=== PATIENT | male | born 1965 | race Two or more races ===

== ENCOUNTER 2017-12-07 22:30 | Emergency (ER) | payer OTHER ==
[~2017-12-07] VITALS: Ht 180.3 cm; Wt 81.6 kg
[~2017-12-07 22:30] MED LIST: AVALIDE 150/12.1 TAB; CEFADROXIL500 MG PO; DUI500 PO; GLUCOTROL10 MG; HUMALOG100 UNIT/1; JANUMET 50-1,1 UDTAB; KETO10TA2 PO; LANTUS SOL100 UNIT/1; METFORMIN HCL1000 MG; MOTRIN800 MG PO; ORPH100T PO; ULTRACET PO
[2017-12-08] MEDS ORDERED: FLONASE ALLERG9.9 ML NASAL (03:45)
[2017-12-08] MEDS ORDERED: ZITHROMAX500 MG PO (03:45)
[2017-12-08] MEDS ORDERED: MUCINEX DM ER1 EAC1 PO (03:45)
[2017-12-08] MEDS ORDERED: BUDESONIDE0.5 MG/2 M IH (03:45)
[2017-12-08] MEDS ORDERED: IPRAT-ALBUT 0.5-3 ML IH (03:45)
[2017-12-08] MEDS ORDERED: PROMETH-CODEIN 65 ML PO (03:45)
== END 2017-12-08 04:07 ==
LOC: ER 22:30
DX: J06.9 Acute upper respiratory infection, unspecified (principal); J32.1 Chronic frontal sinusitis

== ENCOUNTER 2018-03-01 11:08 | Emergency (ER) | payer OTHER ==
[~2018-03-01] VITALS: Ht 180.3 cm; Wt 86.2 kg
[~2018-03-01 11:08] MED LIST changes: +BUDESONIDE0.5 MG/2 M IH; +FLONASE ALLERG9.9 ML NASAL; +IPRAT-ALBUT 0.5-3 ML IH; +MUCINEX DM ER1 EAC1 PO; +PROMETH-CODEIN 65 ML PO; +ZITHROMAX500 MG PO
== END 2018-03-01 13:25 | disposition home or self-care (01) ==
LOC: ER 11:08
DX: M79.18 Myalgia, other site (principal); M25.542 Pain in joints of left hand; M25.541 Pain in joints of right hand

== ENCOUNTER 2018-05-03 13:36 | Outpatient (CLI) | payer OTHER | END 2018-05-03 13:49 | disposition home or self-care (01) | LOC: RAD 501 13:36 | DX: N13.0 Hydronephrosis with ureteropelvic junction obstruction (principal); M15.0 Primary generalized (osteo)arthritis ==

== ENCOUNTER 2018-06-03 16:50 | Emergency (ER) | payer OTHER ==
[~2018-06-03] VITALS: Ht 172.7 cm; Wt 79.4 kg
[2018-06-15] MEDS ORDERED: ULTRACET PO (11:10)
[2018-06-15] MEDS ORDERED: DUI500 PO (11:10)
[2018-06-16] MEDS ORDERED: TRAM1TAB98 PO (09:43)
[2018-06-16] MEDS ORDERED: TAMSULOSIN HCL0.4 MG PO (09:43)
[2018-06-16] MEDS ORDERED: CEFADROXIL500 MG PO (09:45)
== END 2018-06-03 19:00 | disposition home or self-care (01) ==
LOC: ER 16:50
DX: S62.610A Displaced fracture of proximal phalanx of right index finger, initial encounter for closed fracture (principal); S62.612A Displaced fracture of proximal phalanx of right middle finger, initial encounter for closed fracture; W18.09XA Striking against other object with subsequent fall, initial encounter; Y93.89 Activity, other specified; Y92.89 Other specified places as the place of occurrence of the external cause; Y99.8 Other external cause status

== ENCOUNTER 2018-06-06 09:06 | Emergency (ER) | payer OTHER ==
[~2018-06-06] VITALS: Ht 180.3 cm; Wt 79.4 kg
[2018-06-06] MEDS ORDERED: IBUPROFEN600 MG (09:24)
[2018-06-06] MEDS ORDERED: AMOX-CLAV 875-1 EACH (09:24)
== END 2018-06-06 13:28 | disposition home or self-care (01) ==
LOC: ER 09:06
DX: N20.0 Calculus of kidney (principal)

== ENCOUNTER 2018-09-01 09:22 | Outpatient (CLI) | payer OTHER ==
[~2018-09-01 09:22] MED LIST changes: +AMOX-CLAV 875-1 EACH; +IBUPROFEN600 MG; +TAMSULOSIN HCL0.4 MG PO; +TRAM1TAB98 PO
== END 2018-09-01 09:25 | disposition home or self-care (01) ==
LOC: SONOGRAMA 09:22 → MAMO-SONO 10:45
DX: E03.8 Other specified hypothyroidism (principal); N20.0 Calculus of kidney; M25.511 Pain in right shoulder; E04.1 Nontoxic single thyroid nodule

== ENCOUNTER 2019-02-09 09:15 | Emergency (ER) | payer OTHER ==
[~2019-02-09] VITALS: Ht 180.3 cm; Wt 79.4 kg
[2019-02-09] MEDS ORDERED: TESSALON PERLE100 M1 PO (12:26)
[2019-02-09] MEDS ORDERED: PROMETH-CODEIN 65 ML PO (12:26)
== END 2019-02-09 12:40 | disposition home or self-care (01) ==
LOC: ER 09:15
DX: B34.9 Viral infection, unspecified (principal)

== ENCOUNTER → 2019-05-27 | Emergency (ER) | payer OTHER ==
[~2019-05-27] VITALS: Ht 180.3 cm; Wt 79.4 kg
[~2019-05-27] MED LIST changes: +TESSALON PERLE100 M1 PO
== END | disposition home or self-care (01) ==
LOC: ER 15:40
DX: Z48.02 Encounter for removal of sutures (principal)

== ENCOUNTER 2019-11-29 06:00 | Day surgery (SDC) | payer OTHER | END 2019-11-29 11:00 | disposition home or self-care (01) | LOC: AMB-ENDOS 06:00 | PROVIDERS: ATTEND Surgery | DX: D12.4 Benign neoplasm of descending colon (principal); D12.5 Benign neoplasm of sigmoid colon; K64.8 Other hemorrhoids; K62.3 Rectal prolapse ==

== ENCOUNTER 2020-12-10 08:42 | Emergency (ER) | payer OTHER ==
[~2020-12-10] VITALS: Ht 180.3 cm; Wt 83.0 kg
== END 2020-12-10 17:05 | disposition home or self-care (01) ==
LOC: ER 08:42
DX: I87.2 Venous insufficiency (chronic) (peripheral) (principal); M79.604 Pain in right leg; M62.838 Other muscle spasm

== ENCOUNTER 2021-10-29 22:55 | Emergency (ER) | payer OTHER ==
[~2021-10-29] VITALS: Ht 180.3 cm; Wt 84.4 kg
== END 2021-10-30 16:32 | disposition home or self-care (01) ==
LOC: ER 22:55
DX: K52.9 Noninfective gastroenteritis and colitis, unspecified (principal); Z90.5 Acquired absence of kidney; E86.0 Dehydration; E11.21 Type 2 diabetes mellitus with diabetic nephropathy; Z79.4 Long term (current) use of insulin; I12.9 Hypertensive chronic kidney disease with stage 1 through stage 4 chronic kidney disease, or unspecified chronic kidney disease; E11.22 Type 2 diabetes mellitus with diabetic chronic kidney disease; N18.30 Chronic kidney disease, stage 3 unspecified; E11.65 Type 2 diabetes mellitus with hyperglycemia

== ENCOUNTER 2022-03-25 22:45 | Emergency (ER) | payer OTHER ==
[~2022-03-25] VITALS: Ht 180.3 cm; Wt 82.1 kg
[2022-03-26] MEDS ORDERED: TRIAMCINOLONE A15 G3 TOP (10:05)
== END 2022-03-26 10:54 ==
LOC: ER 22:45
DX: L20.9 Atopic dermatitis, unspecified (principal); I10 Essential (primary) hypertension; E11.9 Type 2 diabetes mellitus without complications; Z79.4 Long term (current) use of insulin

== ENCOUNTER 2022-06-13 09:29 | Outpatient (CLI) | payer OTHER ==
[~2022-06-13 09:29] MED LIST changes: +TRIAMCINOLONE A15 G3 TOP
== END 2022-06-13 09:31 | disposition home or self-care (01) ==
LOC: LAB 09:29
PROVIDERS: ATTEND Internal Medicine
DX: D64.9 Anemia, unspecified (principal); E11.9 Type 2 diabetes mellitus without complications; E78.00 Pure hypercholesterolemia, unspecified; N39.0 Urinary tract infection, site not specified; R19.5 Other fecal abnormalities; Z12.11 Encounter for screening for malignant neoplasm of colon; E55.9 Vitamin D deficiency, unspecified; N40.0 Benign prostatic hyperplasia without lower urinary tract symptoms

== ENCOUNTER 2022-07-29 17:22 | Emergency (ER) | payer OTHER ==
[~2022-07-29] VITALS: Ht 180.3 cm; Wt 63.5 kg
== END 2022-07-29 22:38 | disposition home or self-care (01) ==
LOC: ER 17:22
DX: M54.2 Cervicalgia (principal); Z96.698 Presence of other orthopedic joint implants; Z85.9 Personal history of malignant neoplasm, unspecified

== ENCOUNTER 2022-09-25 21:31 | Emergency (ER) | payer OTHER ==
[~2022-09-25] VITALS: Ht 167.6 cm; Wt 74.8 kg
== END 2022-09-26 00:10 | disposition home or self-care (01) ==
LOC: ER 21:31
DX: R07.9 Chest pain, unspecified (principal); I10 Essential (primary) hypertension; E11.9 Type 2 diabetes mellitus without complications; Z79.4 Long term (current) use of insulin

== ENCOUNTER 2022-10-27 18:52 | Emergency (ER) | payer OTHER ==
[~2022-10-27] VITALS: Ht 180.3 cm; Wt 83.9 kg
== END 2022-10-27 22:13 | disposition home or self-care (01) ==
LOC: ER 18:52
DX: S89.81XA Other specified injuries of right lower leg, initial encounter (principal); Y93.89 Activity, other specified; Y92.89 Other specified places as the place of occurrence of the external cause; E11.9 Type 2 diabetes mellitus without complications; Z79.4 Long term (current) use of insulin

== ENCOUNTER → 2023-02-03 09:05 | Outpatient (CLI) | payer OTHER | END | disposition home or self-care (01) | LOC: LAB 09:05 | PROVIDERS: ATTEND Internal Medicine Gastroenterology | DX: J20.9 Acute bronchitis, unspecified (principal); R05.9 Cough, unspecified; R06.02 Shortness of breath ==

== ENCOUNTER 2023-02-16 09:22 | Outpatient (CLI) | payer OTHER | END 2023-02-16 09:24 | disposition home or self-care (01) | LOC: LAB 09:22 | PROVIDERS: ATTEND Internal Medicine Gastroenterology | DX: J20.9 Acute bronchitis, unspecified (principal); R05.9 Cough, unspecified; R06.02 Shortness of breath; Z20.822 Contact with and (suspected) exposure to COVID-19 ==

== ENCOUNTER 2023-07-09 09:06 | Emergency (ER) | payer OTHER ==
[~2023-07-09] VITALS: Ht 180.3 cm; Wt 81.6 kg
[2023-07-09] MEDS ORDERED: CEFTRIAXONE SODIUM 1,000 MG VIAL IM STA (09:50)
[2023-07-09] MEDS ORDERED: ACETAMINOPHEN 500 MG GEL..CAP PO STA (09:51)
[2023-07-09 10:23] LABS: HEMATOCRIT 40.1 % (39.0-48.0); HEMOGLOBIN 13.8 g/dL (13-16.00); MEAN CELL VOLUME 94.3 fL (80.0-100.00); MEAN CORPUSCULAR HEMOGLOBIN 32.6 pg (27.00-32.0); MEAN CORPUSCULAR HGB CONC 34.5 g/dl (32.0-36.0); PLATELET COUNT 212 K/uL (150-450); RED BLOOD COUNT 4.24 M/uL (4.00-6.00); RED CELL DISTRIBUTION WIDTH 13.1 % (11.5-14.5)
[2023-07-09 11:14] LABS: CALCIUM 9.6 mg/dL (8.5-10.1); CREATININE SERUM 1.43 mg/dL (0.70-1.30); GFR 51.16; POTASSIUM 4.21 mEq/L (3.5-5.1)
[2023-07-09 11:20] LABS: URINE APPEARANCE Clear; URINE BILIRRUBIN Negative (NEGATIVE); URINE BLOOD Negative; URINE COLOR Yellow; URINE GLUCOSE Negative (NEGATIVE); URINE LEUKOCYTE Negative; URINE NITRATE Negative; URINE PROTEIN Negative (NEGATIVE); URINE UROBILINOGEN 0.2 E.U./dl
[2023-07-09 11:21] LABS: URINE BACTERIA 20.1 uL (0.0-1933); URINE EPITHELIAL CELLS 1.8 uL (0.0-38.8)
[2023-07-09 12:10] LABS: URINE RBC 0.4 uL (0.0-20.8); URINE WBC 1.2 uL (0.0-23.2)
[2023-07-09] MEDS ORDERED: KETOROLAC TROMETHAMINE 15 MG VIAL IM STA (12:40)
== END 2023-07-09 13:07 | disposition home or self-care (01) ==
LOC: ER 09:06
PROVIDERS: Emergency Medicine
DX: J03.80 Acute tonsillitis due to other specified organisms (principal); Z90.5 Acquired absence of kidney; E11.9 Type 2 diabetes mellitus without complications; Z79.4 Long term (current) use of insulin; Z20.822 Contact with and (suspected) exposure to COVID-19
CPT/HCPCS: 36415; 96372; 99282; J0696; J1885

== ENCOUNTER → 2023-07-10 | Emergency (ER) | payer OTHER ==
[~2023-07-10] VITALS: Ht 180.3 cm; Wt 81.6 kg
== END | disposition left against medical advice (07) ==
LOC: ER 22:20
DX: Z53.21 Procedure and treatment not carried out due to patient leaving prior to being seen by health care provider (principal)

== ENCOUNTER 2023-08-31 09:48 | Emergency (ER) | payer OTHER ==
[~2023-08-31] VITALS: Ht 180.3 cm; Wt 81.6 kg
[2023-08-31] MEDS ORDERED: KETOROLAC TROMETHAMINE 30 MG VIAL IM STA (11:06)
== END 2023-08-31 11:59 | disposition home or self-care (01) ==
LOC: ER 09:48
DX: M25.562 Pain in left knee (principal)
CPT/HCPCS: 73560; 96372; 99283; J1885

== ENCOUNTER 2023-08-31 12:54 | Outpatient (CLI) | payer OTHER | END 2023-08-31 13:05 | disposition home or self-care (01) | LOC: MRI 12:54 | PROVIDERS: ATTEND General Practice | DX: M25.562 Pain in left knee (principal) | CPT/HCPCS: 73718 ==

== ENCOUNTER 2023-12-16 10:24 | Outpatient (CLI) | payer OTHER | END 2023-12-16 10:29 | disposition home or self-care (01) | LOC: TOM 10:24 | PROVIDERS: ATTEND Internal Medicine | DX: G45.9 Transient cerebral ischemic attack, unspecified (principal) ==

== ENCOUNTER 2023-12-30 09:24 | Outpatient (CLI) | payer OTHER | END 2023-12-30 09:25 | disposition home or self-care (01) | LOC: NUCLEAR 09:24 | PROVIDERS: ATTEND Internal Medicine | DX: R55 Syncope and collapse (principal); I65.23 Occlusion and stenosis of bilateral carotid arteries ==

== ENCOUNTER 2024-01-01 20:22 | Emergency (ER) | payer OTHER ==
[~2024-01-01] VITALS: Ht 180.3 cm; Wt 81.6 kg
[2024-01-01] MEDS ORDERED: KETOROLAC TROMETHAMINE 30 MG VIAL IM STA (20:47)
[2024-01-01] MEDS ORDERED: KETOROLAC TROMETHAMINE 30 MG VIAL ONE (20:50)
== END 2024-01-01 22:04 | disposition home or self-care (01) ==
LOC: ER 20:24
DX: M25.562 Pain in left knee (principal); E11.9 Type 2 diabetes mellitus without complications; Z79.4 Long term (current) use of insulin; Z79.84 Long term (current) use of oral hypoglycemic drugs
CPT/HCPCS: 73560; 96372; 99283; J1885

== ENCOUNTER 2024-02-08 20:40 | Emergency (ER) | payer OTHER ==
[~2024-02-08] VITALS: Ht 180.3 cm; Wt 83.9 kg
[2024-02-08] MEDS ORDERED: TETANUS & DIPHTHERIA TOX,ADULT 0.5 ML VIAL IM ONE (21:15)
[2024-02-08] MEDS ORDERED: CEFTRIAXONE SODIUM 1,000 MG VIAL IM ONE (21:15)
[2024-02-08] MEDS ORDERED: TETANUS DIPHTHERIA TOX. ADSOR 5 ML VIAL IM ONE (21:32)
[2024-02-08] MEDS ORDERED: CEFTRIAXONE SODIUM 1,000 MG VIAL ONE (21:32)
== END 2024-02-08 21:50 | disposition home or self-care (01) ==
LOC: ER 20:42
DX: S61.412A Laceration without foreign body of left hand, initial encounter (principal); W45.8XXA Other foreign body or object entering through skin, initial encounter; Y93.89 Activity, other specified; Y92.89 Other specified places as the place of occurrence of the external cause; Y99.9 Unspecified external cause status; E11.9 Type 2 diabetes mellitus without complications; Z79.4 Long term (current) use of insulin; Z79.84 Long term (current) use of oral hypoglycemic drugs; I10 Essential (primary) hypertension

== ENCOUNTER 2024-02-12 20:31 | Emergency (ER) | payer OTHER ==
[~2024-02-12] VITALS: Ht 180.3 cm; Wt 87.1 kg
== END 2024-02-12 21:52 | disposition home or self-care (01) ==
LOC: ER 20:32
DX: Z48.02 Encounter for removal of sutures (principal)

== ENCOUNTER 2024-05-30 08:52 | Emergency (ER) | payer OTHER ==
[~2024-05-30] VITALS: Ht 180.3 cm; Wt 81.6 kg
[2024-05-30] MEDS ORDERED: METHYLPREDNISOLONE SOD SUCC 40 MG VIAL ONE (10:49)
[2024-05-30 11:23] LABS: HEMATOCRIT 39.7 % (39.0-48.0); HEMOGLOBIN 13.8 g/dL (13-16.00); MEAN CELL VOLUME 95.4 fL (80.0-100.00); MEAN CORPUSCULAR HEMOGLOBIN 33.2 pg (27.00-32.0); MEAN CORPUSCULAR HGB CONC 34.8 g/dl (32.0-36.0); PLATELET COUNT 237 K/uL (150-450); RED BLOOD COUNT 4.16 M/uL (4.00-6.00); RED CELL DISTRIBUTION WIDTH 13.4 % (11.5-14.5)
[2024-05-30] MEDS ORDERED: LEVALBUTEROL HCL 1.25 MG/3 ML SOLUTION IH ONE (13:20)
[2024-05-30] MEDS ORDERED: IPRATROPIUM BROMIDE 0.5 MG/2.5 ML AMPUL.NEB IH ONE (13:21)
== END 2024-05-30 13:43 | disposition home or self-care (01) ==
LOC: ER 08:54
PROVIDERS: General Practice
DX: J00 Acute nasopharyngitis [common cold] (principal); R05.9 Cough, unspecified; Z20.822 Contact with and (suspected) exposure to COVID-19; I10 Essential (primary) hypertension; E11.9 Type 2 diabetes mellitus without complications; Z79.4 Long term (current) use of insulin

== ENCOUNTER 2024-06-10 22:37 | Emergency (ER) | payer OTHER ==
[~2024-06-10] VITALS: Ht 180.3 cm; Wt 81.6 kg
[2024-06-11] MEDS ORDERED: HYDROCODONE/CHLORPHEN P-STIREX 5 ML ML PO STA (04:17)
[2024-06-11 05:01] LABS: HEMATOCRIT 38.3 % (39.0-48.0); HEMOGLOBIN 12.8 g/dL (13-16.00); MEAN CELL VOLUME 96.1 fL (80.0-100.00); MEAN CORPUSCULAR HEMOGLOBIN 32.2 pg (27.00-32.0); MEAN CORPUSCULAR HGB CONC 33.5 g/dl (32.0-36.0); PLATELET COUNT 202 K/uL (150-450); RED BLOOD COUNT 3.99 M/uL (4.00-6.00); RED CELL DISTRIBUTION WIDTH 13.4 % (11.5-14.5)
== END 2024-06-11 06:00 | disposition home or self-care (01) ==
LOC: ER 22:40
DX: J10.1 Influenza due to other identified influenza virus with other respiratory manifestations (principal); Z20.822 Contact with and (suspected) exposure to COVID-19; E11.9 Type 2 diabetes mellitus without complications; Z79.4 Long term (current) use of insulin; Z79.84 Long term (current) use of oral hypoglycemic drugs

== ENCOUNTER → 2024-09-28 | Emergency (ER) | payer OTHER ==
[~2024-09-28] VITALS: Ht 180.3 cm; Wt 81.6 kg
[~2024-09-28] MED LIST changes: +LIDOCAINE HCL 1% 10ML VIAL ONE; +TRIAMCINOLONE ACETONIDE 40 MG/ML VIAL IJ STA; +TRIAMCINOLONE ACETONIDE 40 MG/ML VIAL ONE
== END | disposition home or self-care (01) ==
LOC: ER 13:53
DX: M77.8 Other enthesopathies, not elsewhere classified (principal); Z87.442 Personal history of urinary calculi; Z85.89 Personal history of malignant neoplasm of other organs and systems
CPT/HCPCS: 73020; 96372; 99283; J3301

== ENCOUNTER 2024-11-14 20:06 | Emergency (ER) | payer OTHER ==
[~2024-11-14] VITALS: Ht 180.3 cm; Wt 86.2 kg
[~2024-11-14 20:06] MED LIST changes: -LIDOCAINE HCL 1% 10ML VIAL ONE; -TRIAMCINOLONE ACETONIDE 40 MG/ML VIAL IJ STA; -TRIAMCINOLONE ACETONIDE 40 MG/ML VIAL ONE
[2024-11-14] MEDS ORDERED: KETOROLAC TROMETHAMINE 60 MG VIAL IM ONE (23:15)
[2024-11-14] MEDS ORDERED: ORPHENADRINE CITRATE 30 MG/ML AMPUL IM ONE (23:15)
[2024-11-15] MEDS ORDERED: KETOROLAC TROMETHAMINE 60 MG VIAL IM ONE (00:07)
[2024-11-15] MEDS ORDERED: ORPHENADRINE CITRATE 30 MG/ML AMPUL ONE (00:07)
[2024-11-15] MEDS ORDERED: NORFLEX100MG PO (00:36)
== END 2024-11-15 00:44 | disposition home or self-care (01) ==
LOC: ER 20:06
DX: M54.9 Dorsalgia, unspecified (principal); I10 Essential (primary) hypertension; E11.9 Type 2 diabetes mellitus without complications; Z79.4 Long term (current) use of insulin

== ENCOUNTER 2025-01-03 09:07 | Emergency (ER) | payer OTHER ==
[~2025-01-03] VITALS: Ht 180.3 cm; Wt 81.6 kg
[~2025-01-03 09:07] MED LIST changes: +NORFLEX100MG PO
[2025-01-03 10:27] LABS: BASO % 0.6 % (0.1-1.2); EOS # 0.13 (0.04-0.54); EOS % 2.8 % (0.7-7.0); LYMPH # 1.63 (1.18-3.74); LYMPH % 34.8 % (19.3-53.1); MEAN PLATELET VOLUME 9.40 fl (9.4-12.4); MONO # 0.42 (0.24-0.82); MONO % 9.0 % (4.7-12.5); NEUT # 2.45 (1.56-6.13); NEUT % 52.4 % (34.0-71.1); RED CELL DISTRIBUTION WIDTH 12.5 % (11.6-14.4)
[2025-01-03 10:44] LABS: COVID-19 AG POSITIVE (NEGATIVE)
[2025-01-03] MEDS ORDERED: BENZONATATE 200 MG CAPSULE PO ONE (11:15)
[2025-01-03] MEDS ORDERED: ACETAMINOPHEN500 M1 PO (11:18)
[2025-01-03] MEDS ORDERED: GILTUSS COUGH-118 M1 PO (11:18)
[2025-01-03] MEDS ORDERED: PAXLOVID 300-11 EAC1 PO (11:18)
== END 2025-01-03 11:39 | disposition home or self-care (01) ==
LOC: ER 09:07
PROVIDERS: Preventive Medicine Public Health & General Preventive Medicine
DX: U07.1 COVID-19 (principal)

== ENCOUNTER 2025-01-28 23:54 | Emergency (ER) | payer OTHER ==
[~2025-01-28] VITALS: Ht 180.3 cm; Wt 81.6 kg
[~2025-01-28 23:54] MED LIST changes: +ACETAMINOPHEN500 M1 PO; +GILTUSS COUGH-118 M1 PO; +PAXLOVID 300-11 EAC1 PO
[2025-01-29] MEDS ORDERED: DIPHTH,PERTUSS(ACELL),TET VAC 0.5 ML SYRINGE IM ONE (01:25)
[2025-01-29] MEDS ORDERED: CEFTRIAXONE SODIUM 1,000 MG VIAL ONE (01:25)
[2025-01-29] MEDS ORDERED: DUI500 PO (01:43)
[2025-01-29] MEDS ORDERED: TETANUS & DIPHTHERIA TOX,ADULT 0.5 ML VIAL IM ONE (01:45)
[2025-01-29] MEDS ORDERED: CEFTRIAXONE SODIUM 1,000 MG VIAL IM ONE (01:45)
== END 2025-01-29 02:15 | disposition home or self-care (01) ==
LOC: ER 23:54
DX: S61.012A Laceration without foreign body of left thumb without damage to nail, initial encounter (principal); W26.0XXA Contact with knife, initial encounter; Y93.89 Activity, other specified; Y92.89 Other specified places as the place of occurrence of the external cause; Y99.9 Unspecified external cause status; I10 Essential (primary) hypertension; E11.9 Type 2 diabetes mellitus without complications; Z79.4 Long term (current) use of insulin

== ENCOUNTER 2025-03-27 21:58 | Emergency (ER) | payer OTHER ==
[~2025-03-27] VITALS: Ht 180.3 cm; Wt 89.4 kg
[2025-03-27] MEDS ORDERED: KETOROLAC TROMETHAMINE 60 MG VIAL IM ONE (23:45)
[2025-03-28 01:56] LABS: BASO % 0.7 % (0.1-1.2); EOS # 0.30 (0.04-0.54); EOS % 3.7 % (0.7-7.0); LYMPH # 2.75 (1.18-3.74); LYMPH % 33.7 % (19.3-53.1); MEAN PLATELET VOLUME 9.30 fl (9.4-12.4); MONO # 0.73 (0.24-0.82); MONO % 8.9 % (4.7-12.5); NEUT # 4.27 (1.56-6.13); NEUT % 52.4 % (34.0-71.1); RED CELL DISTRIBUTION WIDTH 12.0 % (11.6-14.4)
[2025-03-28 02:23] LABS: ERYTHROCYTE SEDIMENTATION RATE 19 mm/hr (0-20)
== END 2025-03-28 03:44 | disposition home or self-care (01) ==
LOC: ER 21:58
PROVIDERS: General Practice
DX: M79.674 Pain in right toe(s) (principal); E11.8 Type 2 diabetes mellitus with unspecified complications; I10 Essential (primary) hypertension; E11.9 Type 2 diabetes mellitus without complications; Z79.4 Long term (current) use of insulin
CPT/HCPCS: 36415; 73620; 96372; 99283; J1885